=== PATIENT | female | born 1935 | race Caucasian/White ===

== ENCOUNTER 2017-08-11 08:41 | Inpatient (IN) | payer OTHER ==
[~2017-08-11] VITALS: Ht 144.8 cm; Wt 59.0 kg
[2017-08-11] MEDS ORDERED: COZAAR50 MG (08:54)
[2017-08-11] MEDS ORDERED: ZOLOFT20 MG/1 ML (08:55)
== END 2017-08-25 12:42 | disposition home or self-care (01) | DRG 640 ==
LOC: ER 08:41 → MEDI 14:25 → SEC-K 14:25 → MEDI 14:49
PROC: B246ZZZ Ultrasonography of Right and Left Heart (ICD-10-PCS; 2017-08-14)
PROC: 3E0F7GC Introduction of Other Therapeutic Substance into Respiratory Tract, Via Natural or Artificial Opening (ICD-10-PCS; 2017-08-16)
PROC: 4A033R1 Measurement of Arterial Saturation, Peripheral, Percutaneous Approach (ICD-10-PCS; 2017-08-16)
PROC: 4A12X4Z Monitoring of Cardiac Electrical Activity, External Approach (ICD-10-PCS; 2017-08-17)
PROC: BW2FY0Z Computerized Tomography (CT Scan) of Neck using Other Contrast, Unenhanced and Enhanced (ICD-10-PCS; 2017-08-20)
PROC: 0CJS8ZZ Inspection of Larynx, Via Natural or Artificial Opening Endoscopic (ICD-10-PCS; principal; 2017-08-21)
PROC: 09JK8ZZ Inspection of Nasal Mucosa and Soft Tissue, Via Natural or Artificial Opening Endoscopic (ICD-10-PCS; 2017-08-21)
PROC: BB24ZZZ Computerized Tomography (CT Scan) of Bilateral Lungs (ICD-10-PCS; 2017-08-21)
PROC: 3E0336Z Introduction of Nutritional Substance into Peripheral Vein, Percutaneous Approach (ICD-10-PCS; 2017-08-21)
PROC: BW28ZZZ Computerized Tomography (CT Scan) of Head (ICD-10-PCS; 2017-08-23)
PROC: BD11YZZ Fluoroscopy of Esophagus using Other Contrast (ICD-10-PCS; 2017-08-23)
DX: E86.0 Dehydration (principal); I50.33 Acute on chronic diastolic (congestive) heart failure; J18.9 Pneumonia, unspecified organism; N39.0 Urinary tract infection, site not specified; B02.8 Zoster with other complications; R78.81 Bacteremia; B37.0 Candidal stomatitis; I35.1 Nonrheumatic aortic (valve) insufficiency; I11.0 Hypertensive heart disease with heart failure; D64.89 Other specified anemias; K21.0 Gastro-esophageal reflux disease with esophagitis; J04.0 Acute laryngitis; R13.12 Dysphagia, oropharyngeal phase; K22.8 Other specified diseases of esophagus; B96.29 Other Escherichia coli [E. coli] as the cause of diseases classified elsewhere

== ENCOUNTER → 2022-07-28 | Emergency (ER) | payer OTHER ==
[~2022-07-28] VITALS: Ht 152.4 cm; Wt 38.6 kg
[~2022-07-28] MED LIST: COZAAR50 MG; ZOLOFT20 MG/1 ML
== END | disposition home or self-care (01) ==
LOC: ER 09:31
DX: R19.7 Diarrhea, unspecified (principal); I10 Essential (primary) hypertension; G30.9 Alzheimer's disease, unspecified; F02.80 Dementia in other diseases classified elsewhere, unspecified severity, without behavioral disturbance, psychotic disturbance, mood disturbance, and anxiety